=== PATIENT | male | born 1930 ===

== ENCOUNTER 2016-09-17 10:56 | Day surgery (SDC) | payer MEDICARE ==
[2016-09-13 09:27] VITALS: BMI 20.5
[2016-09-17 11:22] LABS: ADD MANUAL DIFF? NO
[2016-09-17 11:25] LABS: BASO # 0.03 K/mm3 (0.0-2.0); BASO % 0.2 % (0.0-3.0); EOS % 0.2 % (1.5-5.0); GRAN # 9.59 (1.4-6.5); LYMPH # 2.7 (1.2-3.4); LYMPH % 20.7 % (22.0-35.0); MEAN CELL VOLUME 86.9 fL (80.0-105.0); MEAN CORPUSCULAR HGB CONC 35.7 g/dl (31.0-37.0); MONO # 0.8 (0.1-0.6); MONO % 5.9 % (1.0-6.0); PLATELET COUNT 281 10^3/uL (120.0-450.0); RED CELL DISTRIBUTION WIDTH 16.5 % (11.5-14.5); WHITE BLOOD COUNT 13.2 10^3/ul (4.5-11.0)
[2016-09-17 11:35] LABS: ALB/GLOB RATIO 0.7 (1.1-1.8); ALKALINE PHOSPHATASE 780 U/L (38-133); ALT/SGPT 76 U/L (7-56); AST/SGOT 232 U/L (15-59); BILIRUBIN,TOTAL 15.9 mg/dL (0.2-1.3); BLOOD UREA NITROGEN 19 mg/dL (7-21); CALCIUM 9.9 mg/dL (8.4-10.5); CARBON DIOXIDE 26 mmol/L (21-33); CHLORIDE 100 mmol/L (95-110); GFR AFRICAN-AMERICAN > 60; GLUCOSE,RANDOM 170 mg/dL (70-110); POTASSIUM 4.1 mmol/L (3.6-5.0); SODIUM 138 mmol/L (132-148); TOTAL PROTEIN 9.1 g/dL (5.8-8.3)
[2016-09-17 11:36] LABS: INR 1.15 (0.93-1.08); PARTIAL THROMBOPLASTIN TIME 27.6 Seconds (23.7-30.8)
[2016-09-17] MEDS ORDERED: Indomethacin 50 MG Suppository PR ONE ×2 (12:49→14:10)
[2016-09-17] MEDS ORDERED: Iohexol 240 (50 ml) ONE (12:50)
[2016-09-17] MEDS ORDERED: Propofol 10 mg/ml Inj (20 ML) ONE (13:01)
[2016-09-17] MEDS ORDERED: Midazolam 2 MG/2 ML VIAL ONE (13:01)
[2016-09-17] MEDS ORDERED: Rocuronium 10 mg/ml (5 ml) ONE (13:22)
[2016-09-17] MEDS ORDERED: Sevoflurane - Inhalation Anesthetic Liq (250 ml) ONE (13:50)
[2016-09-17] MEDS ORDERED: cefTRIAXone (Rocephin) 1 gm Inj ONE (14:09)
[2016-09-17] MEDS ORDERED: ePHEDrine 50 mg/ml Inj ONE (14:13)
[2016-09-17] MEDS ORDERED: Lactated Ringer's 1,000 ML IV SCH (15:15)
[2016-09-17 15:56] VITALS: TEMP 97.4
[2016-09-17 16:51] VITALS: BP 163/74; PULSE 58; RESP 18; O2SAT 98
--- NOTE | 2016-09-20 11:11 | RAD ---
PROCEDURE: ERCP. HISTORY: R/O OBSTRUCTION COMPARISON: None TECHNIQUE: Standard protocol for this study/examination. FINDINGS: Submitted images from the current procedure: 3.0. Confirming the presence of biliary stent satisfactory positioned in the common bile duct. IMPRESSION: Less than 1 hr fluoroscopic time utilized during performance of the procedure.
== END 2016-09-17 15:09 | disposition home or self-care (01) ==
LOC: ENDO 10:56
PROVIDERS: ATTEND Internal Medicine
DX: K86.89 Other specified diseases of pancreas (principal); K86.1 Other chronic pancreatitis; K83.1 Obstruction of bile duct; K80.20 Calculus of gallbladder without cholecystitis without obstruction
CPT/HCPCS: 36415; 43238; 43274; 74330; 80053; 85025; 85610; 85730; 86301; 88305; C2625; J0696; J2001; J2250; J2704; J3010; J7040; Q9966